=== PATIENT | female | born 1995 | race African-American/Black ===

== ENCOUNTER 2018-03-13 08:56 | Emergency (ER) | payer SELFPAY ==
[~2018-03-13] VITALS: Ht 162.6 cm; Wt 52.7 kg
[~2018-03-13 08:56] MED LIST: PREN-88 PO
[2018-03-13] MEDS ORDERED: HYDROCODONE/ACETAMINOPHEN 5/325MG TABLET PO ONE (11:15)
[2018-03-13] MEDS ORDERED: IBUPROFEN 600MG TABLET PO ONE (11:15)
[2018-03-13 11:41] LABS: CLARITY URINE CLEAR (CLEAR); COLOR URINE YELLOW (YELLOW); KETONES URINE NEGATIVE (NEGATIVE); LEUKOCYTE ESTERASE URINE NEGATIVE (NEGATIVE); NITRITE URINE NEGATIVE (NEGATIVE); OCCULT BLOOD URINE NEGATIVE (NEGATIVE); PH URINE 7.5 (4.5-8.0); PROTEIN URINE NEGATIVE (NEGATIVE); SPECIFIC GRAVITY URINE 1.021 (1.005-1.030)
[2018-03-13 15:21] VITALS: BP 119/81
== END 2018-03-13 15:34 | disposition home or self-care (01) ==
LOC: ER 10:34
DX: S09.8XXA Other specified injuries of head, initial encounter (principal); W18.39XA Other fall on same level, initial encounter; W22.8XXA Striking against or struck by other objects, initial encounter; Y93.89 Activity, other specified; Y92.89 Other specified places as the place of occurrence of the external cause; Y99.8 Other external cause status
CPT/HCPCS: 70450; 81003; 81025; 99285

== ENCOUNTER 2018-06-09 09:38 | Emergency (ER) | payer SELFPAY ==
[~2018-06-09] VITALS: Ht 160 cm; Wt 50.0 kg
[2018-06-09] MEDS ORDERED: IBUPROFEN 600MG TABLET PO STA (10:14)
[2018-06-09 10:30] LABS: CLARITY URINE CLEAR (CLEAR); COLOR URINE YELLOW (YELLOW); KETONES URINE NEGATIVE (NEGATIVE); LEUKOCYTE ESTERASE URINE TRACE (NEGATIVE); NITRITE URINE NEGATIVE (NEGATIVE); OCCULT BLOOD URINE NEGATIVE (NEGATIVE); PH URINE 6.5 (4.5-8.0); PROTEIN URINE NEGATIVE (NEGATIVE); SPECIFIC GRAVITY URINE 1.018 (1.005-1.030)
[2018-06-09] MEDS ORDERED: LIDOCAINE HCL 1% 20ML VIAL (Pyxis) INJ INFIL ONE (11:15)
[2018-06-09] MEDS ORDERED: CEFTRIAXONE SODIUM 1 G/VIAL IM ONE (11:15)
[2018-06-09] MEDS ORDERED: LIDOCAINE HCL/PF 1% 10 MG/ML 5ML VIAL IJ NR (11:18)
[2018-06-09 11:58] LABS: BASOPHILS % 0.3 % (0.0-2.0); EOSINOPHILS % 1.1 % (0.0-5.0); HEMATOCRIT. 32.7 % (36.0-48.0); HEMOGLOBIN. 10.5 g/dL (12.0-16.0); LYMPHOCYTES % 18.3 % (20.0-50.0); MEAN CORPUSCULAR VOLUME 77.7 fL (81.0-99.0); MEAN PLATELET VOLUME 7.8 fl (7.4-10.4); MONOCYTES % 7.2 % (2.0-8.0); NEUTROPHILS % 73.1 % (40.0-76.0); PLATELET 296 x1000/uL (130-400); RED BLOOD CELL COUNT 4.21 mill/uL (4.2-5.4); RED CELL DISTRIBUTION WIDTH 13.8 % (11.6-14.6)
[2018-06-09 12:11] LABS: CHLORIDE 107 mEq/L (98-107)
[2018-06-09] MEDS ORDERED: AZITHROMYCIN 500 MG TABLET PO ONE (12:30)
[2018-06-09 13:15] VITALS: BP 103/62
[2018-06-11 04:17] LABS: CHLAMYDIA TRACHOMATIS NAA Negative (Negative); NEISSERIA GONORRHOEAE NAA Negative (Negative)
== END 2018-06-09 13:24 | disposition home or self-care (01) ==
LOC: ER 09:38
DX: N39.0 Urinary tract infection, site not specified (principal); D50.9 Iron deficiency anemia, unspecified; N73.9 Female pelvic inflammatory disease, unspecified; N83.291 Other ovarian cyst, right side; K59.00 Constipation, unspecified
CPT/HCPCS: 36415; 76830; 76856; 80053; 81003; 81025; 83690; 85025; 87210; 87491; 87591; 93976; 96372; 99285; J0696; J3490; Z7610

== ENCOUNTER 2022-02-27 04:58 | Emergency (ER) | payer MEDICAID ==
[~2022-02-27] VITALS: Ht 162.6 cm; Wt 69.0 kg
[2022-02-27] MEDS ORDERED: IBUP-2029 MT (08:56)
[2022-02-27] MEDS ORDERED: CYCL10TA21 MT (08:56)
[2022-02-27] MEDS ORDERED: KETOROLAC 60MG/2ML VIAL IM ONE (09:00)
[2022-02-27 09:17] VITALS: BP 122/81
== END 2022-02-27 09:19 | disposition home or self-care (01) ==
LOC: ER 04:58
DX: M25.511 Pain in right shoulder (principal); Z98.890 Other specified postprocedural states
CPT/HCPCS: 73030; 96372; 99283; J1885

== ENCOUNTER 2022-04-18 21:59 | Emergency (ER) | payer OTHER ==
[~2022-04-18] VITALS: Ht 160 cm; Wt 66.3 kg
[~2022-04-18 21:59] MED LIST changes: +CYCL10TA21 MT; +IBUP-2029 MT
[2022-04-19] MEDS ORDERED: DIPH25CA83 MT (00:11)
[2022-04-19 01:00] VITALS: BP 134/85
== END 2022-04-19 01:02 | disposition home or self-care (01) ==
LOC: ER 21:59
DX: R21 Rash and other nonspecific skin eruption (principal); Z79.899 Other long term (current) drug therapy
CPT/HCPCS: 99282

== ENCOUNTER 2024-05-10 08:56 | Inpatient (IN) | payer OTHER ==
[~2024-05-10] VITALS: Ht 162.6 cm; Wt 67.2 kg
[~2024-05-10 08:56] MED LIST changes: +DIPH25CA83 MT
[2024-05-10] MEDS ORDERED: ACETAMINOPHEN 325MG TABLET PO STA (09:06)
[2024-05-10] MEDS ORDERED: ONDANSETRON HCL 4MG/2ML INJ IV ONE (09:15)
[2024-05-10 09:36] LABS: HEMATOCRIT. 26.6 % (36.0-48.0); HEMOGLOBIN. 8.4 g/dL (12.0-16.0); MEAN CORPUSCULAR HEMOGLOBIN 24.3 pg (28.0-32.0); MEAN CORPUSCULAR HGB CONC 31.4 g/dL (31.0-37.0); MEAN CORPUSCULAR VOLUME 77.4 fL (81.0-99.0); MEAN PLATELET VOLUME 7.9 fl (7.4-10.4); PLATELET 313 x1000/uL (130-400); RED BLOOD CELL COUNT 3.44 mill/uL (4.2-5.4); RED CELL DISTRIBUTION WIDTH 13.1 % (11.6-14.6); WHITE BLOOD COUNT 8.6 x1000/uL (4.5-11.0)
[2024-05-10 09:45] LABS: DIFFERENTIAL COMMENT 1
[2024-05-10 09:51] LABS: CHLORIDE 104 mEq/L (98-107); POTASSIUM 3.8 mEq/L (3.5-5.1); SODIUM 135 mEq/L (136-145)
[2024-05-10 09:52] LABS: CALCIUM 9.5 mg/dL (8.7-10.4); CARBON DIOXIDE 23 mEq/L (21-32)
[2024-05-10 09:57] LABS: CREATININE 0.7 mg/dL (0.6-1.0); GLUCOSE 117 mg/dL (70-105); UREA NITROGEN BLOOD 17 mg/dL (9-23)
[2024-05-10 10:01] LABS: B-HCG QUANTITATIVE < 1 mIU/mL (<3)
[2024-05-10] MEDS: SODIUM CHLORIDE 0.9% 1,000 ML IV ONE (10:58)
[2024-05-10] MEDS: ONDANSETRON HCL 4MG/2ML INJ IV NR (10:58)
[2024-05-10] MEDS: ACETAMINOPHEN 325MG TABLET PO NR (10:58)
[2024-05-10 11:12] LABS: HCG SCREEN NEGATIVE
[2024-05-10 12:20] LABS: PLATELET ESTIMATE NORMAL
[2024-05-10 12:21] LABS: ANISOCYTOSIS 1+
[2024-05-10 12:22] LABS: MICROCYTOSIS 1+
[2024-05-10] MEDS ORDERED: MORPHINE SULFATE 4 MG/ML INJ (FOR IV/IM USE) IV ONE (12:45)
[2024-05-10] MEDS: MORPHINE SULFATE 4 MG/ML INJ (FOR IV/IM USE) IV NR (13:10)
[2024-05-10 14:56] LABS: HEMATOCRIT 23.4 % (36.0-48.0); HEMOGLOBIN 7.4 g/dL (12.0-16.0); MEAN CORPUSCULAR HEMOGLOBIN 24.4 pg (28.0-32.0); MEAN CORPUSCULAR HGB CONC 31.6 g/dL (31.0-37.0); PLATELET 261 x1000/uL (130-400); RED BLOOD CELL COUNT 3.03 mill/uL (4.2-5.4); RED CELL DISTRIBUTION WIDTH 12.9 % (11.6-14.6); WHITE BLOOD COUNT 9.8 x1000/uL (4.5-11.0)
[2024-05-10 18:02] LABS: HEMATOCRIT 22.7 % (36.0-48.0); HEMOGLOBIN 7.2 g/dL (12.0-16.0)
[2024-05-10 20:00] VITALS: BP 102/59; PULSE 76; RESP 18; TEMP 37.61412; O2SAT 100
[2024-05-10 22:00] VITALS: BP 102/59; PULSE 76; RESP 18; TEMP 37.6412
[2024-05-10] MEDS ORDERED: HYDROMORPHONE HCL 2MG TABLET PO PRN (22:30)
[2024-05-10] MEDS ORDERED: NALOXONE HCL 0.4MG/ML VIAL IV PRN (22:45)
[2024-05-10] MEDS: HYDROMORPHONE HCL/PF 2MG/ML INJ IV PRN (23:15)
[2024-05-11] VITALS: BP 118/66; PULSE 84; RESP 18; TEMP 37.05852; O2SAT 99
[2024-05-11 01:13] LABS: HEMOGLOBIN 7.3 g/dL (12.0-16.0)
[2024-05-11 03:51] LABS: HEPATITIS C AB NON REACTIVE (Neg) (Negative)
[2024-05-11 04:00] VITALS: BP 121/70; PULSE 79; RESP 18; TEMP 36.50292; O2SAT 99
[2024-05-11 04:47] LABS: HEPATITIS B SURFACE ANTIGEN NEGATIVE (Negative)
[2024-05-11 08:00] VITALS: BP 104/62; PULSE 80; RESP 17; TEMP 36.3918; O2SAT 100
[2024-05-11] MEDS: IBUPROFEN 600MG TABLET PO PRN (15:52)
[2024-05-11 20:00] VITALS: BP 93/50; PULSE 77; RESP 18; TEMP 37.11408; O2SAT 98
[2024-05-11 21:06] LABS: BASOPHILS % 0.3 % (0.0-2.0); DIFFERENTIAL COMMENT 0; EOSINOPHILS % 0.7 % (0.0-5.0); HEMATOCRIT. 22.7 % (36.0-48.0); HEMOGLOBIN. 7.2 g/dL (12.0-16.0); LYMPHOCYTES % 11.1 % (20.0-50.0); MEAN CORPUSCULAR HEMOGLOBIN 24.7 pg (28.0-32.0); MEAN CORPUSCULAR HGB CONC 31.8 g/dL (31.0-37.0); MEAN CORPUSCULAR VOLUME 77.6 fL (81.0-99.0); MEAN PLATELET VOLUME 8.1 fl (7.4-10.4); MONOCYTES % 8.7 % (2.0-8.0); NEUTROPHILS % 79.2 % (40.0-76.0); PLATELET 273 x1000/uL (130-400); RED BLOOD CELL COUNT 2.92 mill/uL (4.2-5.4)
[2024-05-11 21:13] LABS: PROTHROMBIN TIME 11.3 sec (9.6-11.0)
[2024-05-12 04:00] VITALS: BP 91/43; PULSE 81; RESP 18; TEMP 37.72524; O2SAT 100
[2024-05-12 06:49] LABS: GLUCOSE FASTING 83 mg/dL (70-105)
[2024-05-12] MEDS: FERROUS SULFATE 325MG TABLET PO SCH (07:04)
[2024-05-12] MEDS: IBUPROFEN 800MG TABLET PO PRN (07:05)
[2024-05-12 08:00] VITALS: BP 92/49; PULSE 72; RESP 17; TEMP 36.3918; TEMP 36.39180; O2SAT 100
[2024-05-12 10:00] VITALS: BP 100/62
[2024-05-12] MEDS: MULTIVITAMINS,THER W-MINERALS TABLET PO SCH (10:12)
[2024-05-12 13:56] VITALS: BP 100/62; PULSE 72; TEMP 98.5; O2SAT 100
== END 2024-05-12 14:30 | disposition home or self-care (01) | DRG 760 ==
LOC: ER 08:56 → 5WST 11:09 → EDBEDREQ 11:10 → EDBEDREQTM 11:10 → 6EST 21:00
PROVIDERS: ADMIT Obstetrics & Gynecology; ATTEND Obstetrics & Gynecology
DX: N83.202 Unspecified ovarian cyst, left side (principal); K66.1 Hemoperitoneum; D64.9 Anemia, unspecified; N83.201 Unspecified ovarian cyst, right side; Z82.49 Family history of ischemic heart disease and other diseases of the circulatory system
CPT/HCPCS: 36415; 76705; 76830; 76856; 80048; 82947; 82962; 84702; 84703; 85014; 85018; 85025; 85027; 86705; 86850; 86900; 86920; 87340; 93880; 99285; J1170; J2270; J2405; J7030